=== PATIENT | male | born 1985 | race Caucasian/White ===

== ENCOUNTER 2018-12-02 01:45 | Emergency (ER) | payer OTHER ==
[~2018-12-02] VITALS: Ht 188 cm; Wt 93.0 kg
[~2018-12-02 01:45] MED LIST: ATIVAN2 MG PO; NOHOMEMEDICATIONS
[2018-12-02 01:46] VITALS: BP 141/92
[2018-12-02] MEDS ORDERED: KEFLEX500 M1 PO (01:54)
[2018-12-02] MEDS ORDERED: BACTRIM DS TAB1 EACH PO (02:09)
== END 2018-12-02 02:22 | disposition home or self-care (01) ==
LOC: ER 01:45
DX: L03.012 Cellulitis of left finger (principal); J45.909 Unspecified asthma, uncomplicated

== ENCOUNTER 2019-03-17 13:15 | Emergency (ER) | payer OTHER ==
[~2019-03-17] VITALS: Ht 188 cm; Wt 95.3 kg
[~2019-03-17 13:15] MED LIST changes: +BACTRIM DS TAB1 EACH PO; +KEFLEX500 M1 PO
[2019-03-17 13:32] LABS: ABSOLUTE NEUTROPHILS 4.7 thou/uL (1.4-8.2); BASOPHILS 0.9 % (0.0-2.0); EOSINOPHILS 2.7 % (0.0-3.0); HEMATOCRIT 45.7 % (42.0-52.0); HEMOGLOBIN 15.5 gm/dL (14.0-18.0); LYMPHOCYTES 25.9 % (24.0-44.0); MCH 28.7 pg (26.0-34.0); MCHC 33.8 g/dL (28.0-37.0); MCV 84.9 fL (80.0-100.0); MONOCYTES 6.7 % (1.0-8.0); PLATELET COUNT 174 thou/uL (150-400); POLYS 63.8 % (36.0-66.0); RBC 5.38 mil/uL (4.50-6.00); RDW 13.1 % (10.5-14.5); WBC 7.4 thou/uL (4.0-11.0)
[2019-03-17 13:41] LABS: ANION GAP 7 mmol/L (7-16); BUN 16 mg/dL (7-18); CALCIUM 9.8 mg/dL (8.5-10.1); CHLORIDE 105 mmol/L (98-107); CO2 29 mmol/L (21-32); CREATININE 1.1 mg/dL (0.7-1.3); GLUCOSE 94 mg/dL (74-106); POTASSIUM 4.3 mmol/L (3.5-5.1); SODIUM 141 mmol/L (136-145)
[2019-03-17 13:51] LABS: ALBUMIN 4.2 g/dL (3.4-5.0); SGOT 31 U/L (15-37); SGPT 25 U/L (30-65); TOTAL BILIRUBIN 0.3 mg/dL (<0.1-1.0); TOTAL PROTEIN 7.8 g/dL (6.4-8.2); TROPONIN-I <0.06 ng/mL (<0.06)
[2019-03-17] MEDS ORDERED: PRILOSEC OTC20 MG PO (15:17)
[2019-03-17 15:34] LABS: AMP/METHAMP Negative (Negative); BARBITURATES Negative (Negative); BENZODIAZEPINES Negative (Negative); COCAINE Negative (Negative); METHADONE Negative (Negative); OPIATES Negative (Negative); PCP Negative (Negative)
[2019-03-17 16:18] VITALS: BP 121/82
--- NOTE | 2019-03-19 14:08 | EKG ---
[place] [address] [facility] [address] [address] ELECTROCARDIOGRAM REPORT Name: JARRED MORRIS Room [facility]: [id number] ������������������ Admission: 03/17/19 ������������������ Attend Phys: Discharge: 03/17/19 ������������������ Date of : 83 Report #: [id number] ����������������������������������������������������������������� [id number] THIS REPORT FOR: //name// [facility] ED Test Date: 2019-03-17 Test Time: 13:14:13 Pat Name: JARRED MORRIS Department: Room: Gender: [employer]: JONEL : 1985 Requested By: Elton Marcos Order Number: [id number] MD: Michele Sandoval Measurements Intervals [place] Rate: 54 P: 32 ME: 165 QRS: 46 QRSD: 81 T: 36 QT: 379 QTc: 360 Interpretive Statements Sinus bradycardia Otherwise normal tracing No previous ECG available for comparison Electronically Signed On 03-19-2019 14:08:23 CDT by Michele Sandoval [email or web address] ��������������������������������������������� <ELECTRONICALLY SIGNED> ���������������������������������������� By: Michele Sandoval MD, LOCATED WITHIN [facility] ��������������������������������������������� 03/19/19 1408 1314 1314 Michele Sandoval MD, FACC /EPI
== END 2019-03-17 16:19 | disposition home or self-care (01) ==
LOC: ER 13:15
PROVIDERS: Emergency Medicine
DX: K21.9 Gastro-esophageal reflux disease without esophagitis (principal); J45.909 Unspecified asthma, uncomplicated